=== PATIENT | male | born 1975 | race Caucasian/White ===

== ENCOUNTER 2019-11-22 14:35 | Emergency (ER) | payer BC, OTHER ==
[2019-11-22 14:47] VITALS: BP 165/110; TEMP 96.8; O2SAT 95
[2019-11-22] MEDS ORDERED: KETOROLAC TROMETHAMINE INJ 60 MG/2 ML VIAL IM ONE (14:49)
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
== END 2019-11-22 15:23 | disposition home or self-care (01) ==
LOC: ER 14:35
DX: S23.3XXA Sprain of ligaments of thoracic spine, initial encounter (principal); S46.811A Strain of other muscles, fascia and tendons at shoulder and upper arm level, right arm, initial encounter; S39.012A Strain of muscle, fascia and tendon of lower back, initial encounter; V89.2XXA Person injured in unspecified motor-vehicle accident, traffic, initial encounter; Y92.410 Unspecified street and highway as the place of occurrence of the external cause

== ENCOUNTER → 2019-11-26 | Outpatient (CLI) | payer OTHER ==
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
== END ==
LOC: CT 13:08
PROVIDERS: ATTEND Nurse Practitioner Family
DX: M51.36 Other intervertebral disc degeneration, lumbar region (principal); M51.37 Other intervertebral disc degeneration, lumbosacral region; M53.86 Other specified dorsopathies, lumbar region; M50.323 Other cervical disc degeneration at C6-C7 level; M48.02 Spinal stenosis, cervical region; V89.2XXA Person injured in unspecified motor-vehicle accident, traffic, initial encounter